=== PATIENT | female | born 1970 | race Two or more races ===

== ENCOUNTER 2021-01-22 10:46 | Day surgery (SDC) | payer OTHER | END 2021-01-22 23:30 | disposition home or self-care (01) | LOC: U 10:46 → CIR.AMB 10:46 | PROVIDERS: ATTEND Obstetrics & Gynecology Obstetrics | DX: N72 Inflammatory disease of cervix uteri (principal); Z20.822 Contact with and (suspected) exposure to COVID-19 ==